=== PATIENT | female | born 1970 | race Caucasian/White ===

== ENCOUNTER 2016-02-27 08:40 | Day surgery (SDC) | payer OTHER ==
[~2016-02-27 08:40] MED LIST: ACETAMINOPHEN 325 MG TABLET PO PRN; ACETYLCHOLINE CHLORIDE 20 DROP KIT IO PRN; BUPIVACAINE HCL/PF 30 ML VIAL IJ PRN; CYCLOPENTOLATE HCL 20 DROP BTL LEFTEYE PRN; DEXTROSE 5%-0.5 NORMAL SALINE 1,000 ML IV PRN; EPINEPHrine 1 MG/ML AMPUL IO PRN; HYALURONATE SODIUM 0.4 ML DISP.SYRIN IO PRN; LIDOCAINE HCL/PF 200 MG/5 ML AMPUL TP PRN; LIDOCAINE HCL/PF 5 ML VIAL IO PRN; NORMAL SALINE 3 ML BOX IV PRN; TETRACAINE HCL 150 DROP BTL OP PRN
[2016-02-27] MEDS: TROPICAMIDE 150 DROP BTL LEFTEYE PRN ×3 (10:01→10:25)
[2016-02-27] MEDS: PHENYLEPHRINE HCL 50 DROP BTL LEFTEYE PRN ×3 (10:01→10:25)
[2016-02-27] MEDS: HYALURONATE SODIUM 0.85 ML DISP.SYRIN IO PRN ×2 (10:46→11:01)
[2016-02-27 11:59] VITALS: BP 121/76
== END 2016-02-27 08:41 | disposition home or self-care (01) ==
LOC: AMB 08:40
PROVIDERS: ATTEND Ophthalmology
PROC: 08RK3JZ Replacement of Left Lens with Synthetic Substitute, Percutaneous Approach (ICD-10-PCS; principal; 2016-02-27 10:20)
DX: H26.9 Unspecified cataract (principal); I10 Essential (primary) hypertension; E66.01 Morbid (severe) obesity due to excess calories; Z68.41 Body mass index [BMI] 40.0-44.9, adult; Z87.891 Personal history of nicotine dependence

== ENCOUNTER 2016-03-12 08:30 | Day surgery (SDC) | payer OTHER ==
[~2016-03-12 08:30] MED LIST changes: -CYCLOPENTOLATE HCL 20 DROP BTL LEFTEYE PRN; +CYCLOPENTOLATE HCL 20 DROP BTL RIGHTEYE PRN
[2016-03-12] MEDS: TROPICAMIDE 150 DROP BTL RIGHTEYE PRN ×3 (09:15→09:35)
[2016-03-12] MEDS: PHENYLEPHRINE HCL 50 DROP BTL RIGHTEYE PRN ×3 (09:15→09:35)
[2016-03-12] MEDS ORDERED: DEXTROSE 5%-0.5 NORMAL SALINE 1,000 ML IV ONE ×2 (09:30→10:00)
[2016-03-12] MEDS: HYALURONATE SODIUM 0.85 ML DISP.SYRIN IO PRN ×2 (10:14→10:26)
[2016-03-12] MEDS ORDERED: ACETAMINOPHEN 325 MG TABLET PO PRN (11:28)
[2016-03-12 11:42] VITALS: BP 115/64
== END 2016-03-12 08:31 | disposition home or self-care (01) ==
LOC: AMB 08:30
PROVIDERS: ATTEND Ophthalmology
PROC: 08RJ3JZ Replacement of Right Lens with Synthetic Substitute, Percutaneous Approach (ICD-10-PCS; principal; 2016-03-12 10:00)
DX: H26.9 Unspecified cataract (principal); I10 Essential (primary) hypertension; E66.01 Morbid (severe) obesity due to excess calories; Z68.41 Body mass index [BMI] 40.0-44.9, adult; Z87.891 Personal history of nicotine dependence

== ENCOUNTER 2016-06-18 12:08 | Day surgery (SDC) | payer OTHER ==
[~2016-06-18 12:08] MED LIST changes: -ACETAMINOPHEN 325 MG TABLET PO PRN; -ACETYLCHOLINE CHLORIDE 20 DROP KIT IO PRN; +APRACLONIDINE HCL 50 DROP BTL LEFTEYE PRN; -BUPIVACAINE HCL/PF 30 ML VIAL IJ PRN; -CYCLOPENTOLATE HCL 20 DROP BTL RIGHTEYE PRN; -DEXTROSE 5%-0.5 NORMAL SALINE 1,000 ML IV PRN; -EPINEPHrine 1 MG/ML AMPUL IO PRN; -HYALURONATE SODIUM 0.4 ML DISP.SYRIN IO PRN; -LIDOCAINE HCL/PF 200 MG/5 ML AMPUL TP PRN; -LIDOCAINE HCL/PF 5 ML VIAL IO PRN; -NORMAL SALINE 3 ML BOX IV PRN; +PHENYLEPHRINE HCL 50 DROP BTL LEFTEYE PRN; -TETRACAINE HCL 150 DROP BTL OP PRN; +TROPICAMIDE 150 DROP BTL LEFTEYE PRN
[2016-06-18 12:13] VITALS: BP 146/88
== END 2016-06-18 12:09 | disposition home or self-care (01) ==
LOC: AMB 12:08
PROVIDERS: ATTEND Ophthalmology
PROC: 085K3ZZ Destruction of Left Lens, Percutaneous Approach (ICD-10-PCS; principal; 2016-06-18 13:50)
DX: H26.492 Other secondary cataract, left eye (principal); Z68.39 Body mass index [BMI] 39.0-39.9, adult